=== PATIENT | female | born 2000 | race African-American/Black ===

== ENCOUNTER 2024-09-29 18:11 | Emergency (ER) | payer OTHER, MEDICAID ==
[~2024-09-29] VITALS: Ht 157.5 cm; Wt 63.6 kg
[2024-09-29] MEDS: IBUPROFEN 600 MG TABLET PO ONE (20:35)
[2024-09-29] MEDS: ACETAMINOPHEN 325 MG TABLET PO ONE (20:35)
[2024-09-29] MEDS ORDERED: ACET-66 PO (21:45)
[2024-09-29] MEDS ORDERED: IBUP-1554 PO (21:45)
[2024-09-29 22:05] VITALS: BP 104/76; PULSE 76; RESP 18; TEMP 97.3; O2SAT 100
== END 2024-09-29 22:06 | disposition home or self-care (01) ==
LOC: EMS 18:11
DX: S23.3XXA Sprain of ligaments of thoracic spine, initial encounter (principal); F41.1 Generalized anxiety disorder; V43.52XA Car driver injured in collision with other type car in traffic accident, initial encounter; Y93.89 Activity, other specified; Y92.89 Other specified places as the place of occurrence of the external cause; Y99.8 Other external cause status
CPT/HCPCS: 72040; 72070; 72100; 99284; Z7502; Z7610